=== PATIENT | male | born 1985 | race African-American/Black ===

== ENCOUNTER 2017-09-18 08:34 | Emergency (ER) | payer SELFPAY ==
[~2017-09-18] VITALS: Ht 172.7 cm; Wt 78.1 kg
[~2017-09-18 08:34] MED LIST: MOTRIN
[2017-09-18 09:28] LABS: BASOPHIL (%) 0.7 % (0-1); BASOPHIL COUNT 0.1 K/uL (0-0.1); EOSINOPHIL (%) 2.1 % (0-5); EOSINOPHIL COUNT 0.2 K/uL (0-0.3); HEMATOCRIT 44.6 % (38.0-50.0); HEMOGLOBIN 15.1 G/DL (12.5-16.6); IMMATURE GRANULOCYTE (%) 0.1 % (0.0-0.7); LYMPHOCYTE (%) 47.9 % (15-42); LYMPHOCYTE COUNT 3.4 K/uL (1.0-2.8); MCH 30.9 PG (29.0-34.0); MCHC 33.9 G/DL (30.0-36.0); MCV 91.4 FL (86-99); MONOCYTE (%) 6.3 % (3-12); MONOCYTE COUNT 0.4 K/uL (0-0.8); NEUTROPHIL (%) 42.9 % (45-76); PLATELET COUNT 286 K/uL (156-360); RBC DIS.WIDTH-CV 13.4 % (11.8-14.6); RBC DIS.WIDTH-SD 45.1 % (39-53); RED BLOOD COUNT 4.88 M/uL (4.00-5.50)
[2017-09-18 09:32] LABS: APPEARANCE SL.HAZY ((CLEAR)); BILIRUBIN NEGATIVE; BLOOD NEGATIVE; COLOR YELLOW ((YELLOW)); GLUCOSE (STRIP) NEGATIVE; KETONES NEGATIVE; LEUKOCYTES TRACE; NITRITE NEGATIVE; PROTEIN (STRIP) 30; SPECIFIC GRAVITY 1.029 (1.000-1.030)
[2017-09-18 09:39] LABS: BACTERIA 2+ /HPF; EPITHELIAL CELLS NONE SEEN /HPF; MUCUS 1+ /LPF
[2017-09-18 09:43] LABS: CHLORIDE 105 mEq/L (99-109); POTASSIUM 3.7 mEq/L (3.7-5.4); SODIUM 139 mEq/L (136-147)
[2017-09-18 09:45] LABS: GLUCOSE 107 mg/dL (70-99)
[2017-09-18 09:49] LABS: GFR ESTIMATE (CALCULATED) > 59 mL/min/ (58.99-99999)
[2017-09-18 09:50] LABS: UREA NITROGEN (BUN) 12 mg/dL (9-23)
[2017-09-18] MEDS ORDERED: CIPRO500 MG PO (10:24)
[2017-09-18] MEDS ORDERED: MIRALAX17 GM PO (10:24)
[2017-09-18 10:53] VITALS: BP 122/85
== END 2017-09-18 11:02 | disposition home or self-care (01) ==
LOC: EME 08:34
PROVIDERS: Emergency Medicine
DX: N39.0 Urinary tract infection, site not specified (principal); R10.12 Left upper quadrant pain; F17.200 Nicotine dependence, unspecified, uncomplicated; Z90.81 Acquired absence of spleen
CPT/HCPCS: 74176; 80048; 81003; 85025; 87086; 99281; 99285; J1885; J7030